=== PATIENT | female | born 1965 | race Caucasian/White ===

== ENCOUNTER 2016-10-11 17:11 | Emergency (ER) | payer OTHER ==
[~2016-10-11] VITALS: Ht 152.4 cm; Wt 68.0 kg
[2016-10-11 17:20] VITALS: BP 129/79
[2016-10-11] MEDS ORDERED: ALBUTEROL FS 2.5 MG/3 ML VIAL.NEB ONE (17:40)
[2016-10-11] MEDS ORDERED: IPRATROPIUM NEB FS 0.5 MG/2.5 ML AMPUL.NEB ONE (17:41)
[2016-10-11] MEDS ORDERED: MECLIZINE HCL 25 MG TABLET ONE (17:56)
[2016-10-11] MEDS ORDERED: DEXAMETHASONE SOD PHOSPHATE 10 MG/ML VIAL ONE (17:56)
[2016-10-11] MEDS ORDERED: MECLIZINE HCL 25 MG TABLET PO ONE (18:00)
[2016-10-11] MEDS ORDERED: ALBUTEROL FS 2.5 MG/3 ML VIAL.NEB CONTNEB ONE (18:00)
[2016-10-11] MEDS ORDERED: IPRATROPIUM NEB FS 0.5 MG/2.5 ML AMPUL.NEB NEB ONE (18:00)
[2016-10-11] MEDS ORDERED: DEXAMETHASONE SOD PHOSPHATE 10 MG/ML VIAL IM ONE (18:00)
--- NOTE | 2016-10-11 18:01 | NUR ---
BREATHING TX IN PROCESSED.
--- NOTE | 2016-10-11 18:15 | NUR ---
PT MEDICATED ORDERED.
--- NOTE | 2016-10-11 18:24 | NUR ---
XRAY DONE AT BS.
== END 2016-10-11 19:45 | disposition home or self-care (01) ==
LOC: ER 17:15
DX: R42 Dizziness and giddiness (principal); F17.200 Nicotine dependence, unspecified, uncomplicated; Z91.012 Allergy to eggs; Z91.018 Allergy to other foods
CPT/HCPCS: 71010-TC; A4606; J1100; J8597; Z7610